=== PATIENT | male | born 1960 | race Caucasian/White ===

== ENCOUNTER → 2023-07-24 07:04 | Outpatient (CLI) | payer BC, SELFPAY ==
--- NOTE | ~2023-07-24 | MR_ITS ---
MRI of the right knee Clinical history: Pain Technique: Coronal proton density and proton density-weighted images, sagittal proton-density and T2 fat-sat images, and axial proton-density fat-saturated images were acquired. Findings: There is complete tear of the proximal ACL. Posterior cruciate ligament is intact. Medial c ollateral ligament and the lateral collateral ligament complex are intact. Popliteus tendon is intact . There is complex tearing of the posterior horn and body of the lateral meniscus. There is probable baker btle horizontal/oblique undersurface tear of the posterior horn of the medial meniscus. There is mild bone contusion at the posterolateral tibial plateau, and posterior medial tibial platea u. Articular cartilage is well preserved throughout the knee. Extensor mechanism is intact. Moderate to large joint effusion is present. Small Michele cyst present. Impression: Complete tear of the proximal ACL. Complex tearing of the posterior horn and body lateral meniscus. Subtle horizontal/oblique undersurface tear of the posterior horn medial meniscus. Mild bone contusions of the posterolateral tibial plateau and posteromedial tibial plateau. Moderate to large joint effusion with small Michele's cyst. Reviewed, dictated and finalized at [facility]. Impression: Complete tear of the proximal ACL. Complex tearing of the posterior horn and body lateral meniscus. Subtle horizontal/oblique undersurface tear of the posterior horn medial menisc us. Mild bone contusions of the posterolateral tibial plateau and posteromedial tib ial plateau. Moderate to large joint effusion with small Michele's cyst.
== END ==
PROVIDERS: PCP Nurse Practitioner; Visit Provider Nurse Practitioner
DX: S83.241A Other tear of medial meniscus, current injury, right knee, initial encounter (principal); S83.271A Complex tear of lateral meniscus, current injury, right knee, initial encounter; X58.XXXA Exposure to other specified factors, initial encounter; M25.461 Effusion, right knee
CPT/HCPCS: 73721